=== PATIENT | male | born 1940 | race Caucasian/White ===

== ENCOUNTER 2016-09-28 14:57 | Observation (INO) ==
[2016-09-28] MEDS ORDERED: NITROGLYCERIN 2% OINT 1 INCH/GM PACK TOP STA (15:29)
[2016-09-28] MEDS ORDERED: NITROGLYCERIN 2% OINT 1 INCH/GM PACK TOP ONE (15:30)
[2016-09-28 15:34] LABS: Basophils # 0.1 10*3/uL (0.0-0.2); Basophils % 1.1 % (0.0-0.8); Eosinophils # 0.2 10*3/uL (0.0-0.87); Eosinophils % 3.9 % (0.00-10.9); Hematocrit 39.3 VOL% (42.0-52.0); Hemoglobin 14.1 GM/DL (14.0-18.0); Immature Granulocytes % 0.4 %; Immature Granulocytes Absolute 0.02 #; Lymphocytes # 1.5 10*3/uL (1.4-4.0); Mean Corpuscular HGB Conc 35.9 GM/DL (32-36); Mean Corpuscular Hemoglobin 32 PG (27-34); Mean Corpuscular Volume 88.1 FL (87-102); Mean Platelet Volume 9.3 FL (9.6-12.0); Monocytes # 0.4 10*3/uL (0.11-0.8); Monocytes % 7.4 % (1.7-12.7); Neutrophils # 3.4 10*3/uL (1.4-7.4); Neutrophils % 60.2 % (38.7-73.9); Platelet Count 128 T/CUMM (130-400); Red Blood Count 4.46 MC/CUMM (3.8-5.5); Red Cell Distribution Width 12.2 % (9.3-17.3); White Blood Count 5.7 T/CUMM (4-12)
[2016-09-28] MEDS ORDERED: ENOXAPARIN 80 MG/0.8 ML SYRINGE SUBCUT STA (15:34)
--- NOTE | 2016-09-28 15:42 | Emergency Department Note ---
Mu Blount Hilary, am scribing for, and in the presence of, Filemon Flynn MD 15: 38. Rina Blount James D, MD, personally performed the services described in this documentation, ascribed by Luz Elena Dobbins in my presence, and it is both accurate and complete 541 . Arrival - Arrival Chief Complaint: Chest Pain Stated Complaint: CHEST PAIN ED Nursing Triage Note: CHEST PAIN, OFF/ON PAST COUPLE OF WEEKS, +SOB,- DIAPHORESIS,+NAUSEA. DID SEE DR VALENCIA IN HIS OFFICE YESTERAY, PER PT HE DID NOT DO AN EKG Mode of Arrival: Ambulatory Limitations: No Limitations Source: Patient, RN Notes Reviewed - History of Present Illness HPI Narrative: Pt is a 75 y/o male presenting to the ED with c/o intermittent chest pain which onset a week ago. Pt states his pain radiates to shoulder and gets a little SOB. He denies nausea or diaphoresis. Pt states for 50 years he has smoked a pack a day but quit a year ago. He says he saw Dr. Valencia yesterday for the same c/c but they did not do an EKG. No other complaints or problems stated in the ED. Onset (ago): week(s) Consistency: intermittent Severity: mild Severity scale (1-10): 1 Quality: sharp Allergies/Adverse Reactions: Allergies Allergy/AdvReac Type Severity Reaction Status Date / Time Iodinated Contrast Media - Allergy HIVES Verified 09/28/16 15:03 Oral and Home Medications: Home Medications Medication Instructions Recorded Confirmed Type Aspirin EC Tab 325 mg PO QAM 09/28/16 09/28/16 History Atorvastatin [Lipitor] 40 mg PO BEDTIME 09/28/16 09/28/16 History Carvedilol 12.5 mg PO QPM 09/28/16 09/28/16 History Carvedilol 25 mg PO QAM 09/28/16 09/28/16 History Levothyroxine Tab [Synthroid Tab] 125 mcg PO DAILY@0700 09/28/16 09/28/16 History Loratadine Tab [Claritin Tab] 10 mg PO QAM 09/28/16 09/28/16 History Nitroglycerin Sl Tab [Nitrostat] 0.4 mg SL Q5M PRN 09/28/16 09/28/16 History Omeprazole 40 mg PO QAM 09/28/16 09/28/16 History Tamsulosin [Flomax] 0.4 mg PO QPM 09/28/16 09/28/16 History Review of System - Review of System 12 point system: reviewed and no additional remarkable complaints except as stated - Review of System Constitutional: Absent: diaphoresis, fever Respiratory: Present: respiratory distress (SOB) Cardiovascular: Present: chest pain Gastrointestinal: Present: nausea Medical,Surgical,& Family Hx - Social History Smoking Status: Smoker, status unknown Exam Physical Examination: GENERAL: This is a well-nourished, well-developed white male in no apparent distress. VITAL SIGNS: Temperature: 98.2 Pulse: 77 Respiratory: 22 Blood Pressure: 205/ 100 O2Sat: 96 HEENT: Head is normocephalic and atraumatic. Pupils are equally round and reactive to light. Extraocular movement are intact. Oropharynx is benign with moist mucous membranes. NECK: Neck is soft and supple without tenderness. There are no masses. There is no lymphadenopathy. LUNGS: Lungs are clear to auscultation bilaterally. Chest rises symmetrically. There is no chest wall tenderness. CV: Heart is regular rate and rhythm without murmurs, rubs, or gallops. ABDOMEN: Abdomen is soft, non-tender to palpation. There are no abnormal masses palpated. There is no organomegaly. Bowel sounds are present and active. SKIN: Skin is warm and dry. No rash. EXTREMITIES: Patient has full range of motion without tenderness. There is no pedal edema. NEUROLOGIC: Awake, alert, and oriented x4. Cranial nerves II through XII are grossly intact. There are no motorsensory deficits. PSYCHIATRIC: Normal affect. Normal mood. Vital Signs: Vital Signs Temperature 98.2 F 09/28/16 15:30 Pulse Rate 77 09/28/16 15:30 Respiratory Rate 18 09/28/16 15:30 Blood Pressure 205/100 09/28/16 15:30 O2 Sat by Pulse Oximetry 96 09/28/16 14:59 Results - Labs CBC & BMP: 09/28/16 15:15 09/28/16 15:15 Lab Results: I have reviewed the patients labs Labs: Laboratory Tests 09/28/16 15:15 WBC 5.7 RBC 4.46 Hgb 14.1 Hct 39.3 L Plt Count 128 L MPV 9.3 L Baso % (Auto) 1.1 H - EKG EKG results: interpreted by ERMD - Impressions EKG: Normal sinus rhythm with a rate of 71, normal P waves, normal axis. Old septal DC. - Diagnostic Findings Procedure: Chest x-ray: image reviewed by me (No infiltrates, no pleural effusions.) Disposition Clinical Impression: Chest pain, Coronary artery disease Case discussed with: patient, patient's family Disposition: Still a Patient Condition: Stable
--- NOTE | 2016-09-28 15:45 | XRay Report ---
XR chest 1V portable Indication: Chest pain. Chest one view: Comparison 04/18/2013. Heart size remains normal. Thoracic aortic tortuosity with calcified atheromatous disease is stable. Increasing bibasilar atelectasis when compared to prior examination. However, no focal pneumonia shown. Pleural spaces are clear. Impression: Worsening bibasilar atelectasis. PROCEDURE INTERPRETED AT [facility] DEPARTMENT OF RADIOLOGY Final Report Signed by: Donald Solitario M.D.
[2016-09-28] MEDS ORDERED: ALUM/MAG/SIMETH/LIDO VISC 1:1 30 ML BOTTLE PO STA (15:48)
[2016-09-28] MEDS ORDERED: ENOXAPARIN 80 MG/0.8 ML SYRINGE SUBCUT ONE (15:53)
[2016-09-28] MEDS ORDERED: ALUM/MAG/SIMETH/LIDO VISC 1:1 30 ML BOTTLE PO ONE (15:53)
[2016-09-28 15:56] LABS: Alanine Aminotransferase 21 U/L (16-61); Albumin 3.5 G/DL (3.4-5.0); Alkaline Phosphatase 102 U/L (45-117); Aspartate Amino Transferase 19 U/L (0-37); Blood Urea Nitrogen 14 MG/DL (7-18); Calcium 8.6 MG/DL (8.5-10.1); Glucose 194 MG/DL (74-106); Magnesium 2.2 MG/DL (1.8-2.4); Osmolality,Calculated 282.5 MOS/KG (273-304); Potassium 3.6 MMOL/L (3.5-5.1); Sodium 139 MMOL/L (136-145); Total Protein 6.6 G/DL (6.4-8.3); Troponin I Only < 0.015 NG/ML (0.00-0.045)
[2016-09-28 16:00] LABS: PT Patient Result 11.1 SECS; Partial Thromboplastin Time 30.4 SECS (0-40)
--- NOTE | 2016-09-28 16:42 | Internal Med History&Physical ---
Assessment and Plan (1) Chest pain Status: Acute Assessment and plan: 75-year-old male admitted to acute care * Chest pain. Atypical in nature. Not related to exertion but the pain this morning was similar to pain he had before. It was not relieved by Mylanta. His initial enzymes are negative. He had a stress test in April. Will consult cardiology to evaluate patient. He may require screening. * Hypertension. Blood pressure is stable. * New onset diabetes. His hemoglobin A1c was 6.7 in the office yesterday. * Hypothyroidism. Continue levothyroxine * Hyperlipidemia. Continue atorvastatin * Discussed with patient and his Current Visit: Yes (2) Diabetes mellitus, new onset Status: Acute Current Visit: Yes (3) Hypertension Status: Acute Current Visit: Yes (4) Hypothyroidism Status: Acute Current Visit: Yes (5) Hyperlipidemia Status: Acute Current Visit: Yes History of Present Illness Chief complaint: Chest pain History of present illness: Mr. Triplett is a 75 year old male with history of coronary artery disease, impaired glucose tolerance, hypertension, hyperlipidemia who presented to the emergency room with chest pain this morning. Patient was seen in the office yesterday and gave a history of intermittent heartburn which has been going on for few weeks and is usually easily relieved by Tums or Mylanta. This morning his blood pressure was high and then the pain was not relieved with Mylanta and he decided to come to the emergency room. It is not related with exertion. He has history of previous coronary artery disease and had a stent placed by Dr. Ruelas. He had a stress test done in April of this year and was normal. He denies any associated diaphoresis or shortness of breath. He has been a chronic smoker all his life. He is still chewing tobacco. He denies any alcohol use. He lives at home with his Home Medications Medication Instructions Recorded Confirmed Type Aspirin EC Tab 325 mg PO QAM 09/28/16 09/28/16 History Atorvastatin [Lipitor] 40 mg PO BEDTIME 09/28/16 09/28/16 History Carvedilol 12.5 mg PO QPM 09/28/16 09/28/16 History Carvedilol 25 mg PO QAM 09/28/16 09/28/16 History Levothyroxine Tab [Synthroid Tab] 125 mcg PO DAILY@0700 09/28/16 09/28/16 History Loratadine Tab [Claritin Tab] 10 mg PO QAM 09/28/16 09/28/16 History Nitroglycerin Sl Tab [Nitrostat] 0.4 mg SL Q5M PRN 09/28/16 09/28/16 History Omeprazole 40 mg PO QAM 09/28/16 09/28/16 History Tamsulosin [Flomax] 0.4 mg PO QPM 09/28/16 09/28/16 History Allergies Allergy/AdvReac Type Severity Reaction Status Date / Time Iodinated Contrast Media - Allergy HIVES Verified 09/28/16 15:03 Oral and Medical,Surgical,& Family Hx - Medical History Cardio: History of: CAD (Stent to ostium of left main coronary artery in 2005), Hypertension Endocrine: History of: Diabetes Mellitus (NIDDM) (Has had long history of impaired glucose tolerance), Dyslipidemia, Thyroid Disorder Respiratory: History of: Asthma Genitourinary: History of: Prostate Problems (BPH) Gastrointestinal: History of: GERD - Surgical History Abdominal Surgeries: Surgical HX of: Hernia Repair (Right inguinal hernia repair 2013) Orthopedic Surgeries: Surgical HX of;: Spinal Surgery (Lumbar) Additional Surgical History: Skull fracture 1969 - Family History Family History: Reports;: Family Heart Disease, Additional Family History ( Hyperlipidemia and thyroid disease) - Social History Smoking Status: Former smoker Marital Status: Lives With:: Spouse Functional capacity: independent ambulation 12 point system: reviewed and no additional remarkable complaints except as stated (As mentioned in HPI) Exam - Constitutional Vitals: Period Temp Pulse Resp BP Sys/Nair Pulse Ox Last 24 Hr 98.2 F-98.2 F 66-77 - 167-205/86-100 96-100 Exam: Examination: GENERAL: NAD. HEENT: PERRLA. EOMI. Mucous membranes are moist. NECK: Neck is supple. No JVD. No carotid bruit. No thyromegaly. CVS: Regular rate and rhythm. S1 and S2 are normal. RESPIRATORY: Lungs are clear. No rales or rhonchi. ABDOMEN: Soft and nontender. Bowel sounds are present. No hepatosplenomegaly. EXT: No edema. Peripheral pulses are present. STONE REPAIRER: Patient is awake, alert and oriented to time place and person. Cranial nerves II through XII are grossly intact. Motor strength is 5 over 5 both upper and lower extremities. SKIN: Warm and dry. MSK: No obvious deformity. Results - Labs CBC & BMP: 09/28/16 15:15 09/28/16 15:15 Lab Results: I have reviewed the past 24 hour labs
[2016-09-28] MEDS ORDERED: ONDANSETRON 4 MG/2 ML VIAL IV PRN (16:57)
[2016-09-28] MEDS ORDERED: DEXTROSE 50% 25 GM/50 ML SYRINGE IV PRN (16:57)
[2016-09-28] MEDS ORDERED: GLUCAGON 1 MG VIAL IM PRN (16:57)
[2016-09-28] MEDS ORDERED: NITROGLYCERIN SL 0.4 MG TABLET SL PRN (17:04)
[2016-09-28] MEDS: INSULIN LISPRO 100 UNIT/ML SUBCUT SCH ×2 (17:49→21:04)
[2016-09-28] MEDS: TAMSULOSIN 0.4 MG CAPSULE PO SCH (18:18)
[2016-09-28] MEDS: SODIUM CHLORIDE 0.9% 1,000 ML IV SCH (18:22)
[2016-09-28] MEDS ORDERED: CARVEDILOL 12.5 MG TABLET PO SCH (19:00)
[2016-09-28] MEDS: ATORVASTATIN 40 MG TABLET PO SCH (21:03)
[2016-09-28] MEDS: DOCUSATE SODIUM 100 MG CAPSULE PO SCH (21:03)
[2016-09-29] MEDS: SODIUM CHLORIDE 0.9% 1,000 ML IV SCH ×3 (00:47→13:35)
[2016-09-29] MEDS: ACETAMINOPHEN 325 MG TABLET PO PRN ×2 (04:08→15:52)
[2016-09-29 04:55] LABS: Basophils % 0.6 % (0.0-0.8); Eosinophils # 0.1 10*3/uL (0.0-0.87); Hematocrit 36.8 VOL% (42.0-52.0); Hemoglobin 12.7 GM/DL (14.0-18.0); Immature Granulocytes % 0.2 %; Immature Granulocytes Absolute 0.01 #; Lymphocytes # 1.5 10*3/uL (1.4-4.0); Lymphocytes % 33.1 % (21.2-54.2); Mean Corpuscular HGB Conc 34.5 GM/DL (32-36); Mean Corpuscular Hemoglobin 31 PG (27-34); Mean Corpuscular Volume 88.9 FL (87-102); Mean Platelet Volume 9.8 FL (9.6-12.0); Monocytes # 0.4 10*3/uL (0.11-0.8); Monocytes % 9.5 % (1.7-12.7); Neutrophils # 2.5 10*3/uL (1.4-7.4); Neutrophils % 53.6 % (38.7-73.9); Platelet Count 106 T/CUMM (130-400); Red Blood Count 4.14 MC/CUMM (3.8-5.5); Red Cell Distribution Width 12.4 % (9.3-17.3); White Blood Count 4.6 T/CUMM (4-12)
[2016-09-29 05:23] LABS: Calcium 8.3 MG/DL (8.5-10.1); Osmolality,Calculated 283.1 MOS/KG (273-304); Potassium 4.2 MMOL/L (3.5-5.1)
--- NOTE | 2016-09-29 07:34 | EKG Report ---
Stationary ECG Study [facility] ER Test Date: 09/28/2016 3:05:03 PM Pat Name: CHEMA CANTU Department: Room: 265 Gender: M Community Action Worker: Taylor Rosen : 1940 Requested by: Filemon Bustamante Order Number: [id number] Reading MD: XIOMARA TAN Intervals [place] Rate: 71 P: 78 WA: 167 QRS: 10 QRSD: 106 T: 71 QT: 383 QTc: 406 Interpretive Statements SINUS RHYTHM POSSIBLE SEPTAL INFARCT, PROBABLY OLD Electronically Signed On 09-29-16 12:03:08 CDT by XIOMARA TAN [email or web address]
[2016-09-29] MEDS: INSULIN LISPRO 100 UNIT/ML SUBCUT SCH ×4 (08:17→20:56)
[2016-09-29 08:40] LABS: Basophils % 0.9 % (0.0-0.8); Eosinophils # 0.1 10*3/uL (0.0-0.87); Eosinophils % 2.8 % (0.00-10.9); Hematocrit 36.9 VOL% (42.0-52.0); Hemoglobin 13.3 GM/DL (14.0-18.0); Immature Granulocytes % 0.2 %; Immature Granulocytes Absolute 0.01 #; Lymphocytes # 1.2 10*3/uL (1.4-4.0); Lymphocytes % 25.3 % (21.2-54.2); Mean Corpuscular Hemoglobin 32 PG (27-34); Mean Corpuscular Volume 88.3 FL (87-102); Mean Platelet Volume 9.3 FL (9.6-12.0); Monocytes # 0.4 10*3/uL (0.11-0.8); Neutrophils # 2.8 10*3/uL (1.4-7.4); Neutrophils % 61.8 % (38.7-73.9); Platelet Count 103 T/CUMM (130-400); Red Blood Count 4.18 MC/CUMM (3.8-5.5); Red Cell Distribution Width 12.4 % (9.3-17.3); White Blood Count 4.6 T/CUMM (4-12)
[2016-09-29] MEDS ORDERED: CARVEDILOL 25 MG TABLET PO SCH (09:00)
[2016-09-29] MEDS ORDERED: NON-FORMULARY MEDICATION (Omeprazole [Omeprazole] 40 MG) PO SCH (09:00)
[2016-09-29] MEDS ORDERED: ASPIRIN EC 325 MG TABLET PO SCH (09:00)
[2016-09-29] MEDS ORDERED: ENOXAPARIN 80 MG/0.8 ML SYRINGE SUBCUT SCH (09:00)
[2016-09-29] MEDS ORDERED: ASPIRIN 325 MG TABLET PO SCH (09:00)
[2016-09-29 09:04] LABS: Potassium 4.2 MMOL/L (3.5-5.1)
[2016-09-29 09:06] LABS: Troponin I Only < 0.015 NG/ML (0.00-0.045)
[2016-09-29 09:07] LABS: Calcium 8.2 MG/DL (8.5-10.1)
[2016-09-29 09:08] LABS: Osmolality,Calculated 282.3 MOS/KG (273-304)
--- NOTE | 2016-09-29 09:49 | Internal Med Progress Note ---
Assessment and Plan (1) Chest pain Status: Acute Assessment and plan: 75-year-old male admitted to acute care * Chest pain. Negative enzymes. Cardiology to evaluate. * GERD. On Protonix. May need an EGD if cardiac evaluation is negative * Hypertension. Blood pressure is stable. * New onset diabetes. Diabetic education to see patient * Hypothyroidism. Continue levothyroxine * Hyperlipidemia. Continue atorvastatin * Discussed with patient and his Current Visit: Yes (2) Diabetes mellitus, new onset Status: Acute Current Visit: Yes (3) Hypertension Status: Acute Current Visit: Yes (4) Hypothyroidism Status: Acute Current Visit: Yes (5) Hyperlipidemia Status: Acute Current Visit: Yes Internal Medicine - PN: Subj Interval history: Patient states that he did not had a good night. He continued to have a lot of burps and indigestion. He did have pressure on his chest. Exam (Progress Note) - Constitutional Vitals: Period Temp Pulse Resp BP Sys/Nair Pulse Ox Last 24 Hr 97.6 F-98.3 F 50-77 15-22 109-205/61-100 94-100 Exam: Examination: GENERAL: NAD. HEENT: PERRLA. EOMI. NECK: Neck is supple. CVS: Regular rate and rhythm. S1 and S2 are normal. RESPIRATORY: Lungs are clear. ABDOMEN: Soft and nontender. EXT: No edema. Peripheral pulses are present. WORKERS' COMPENSATION HEARINGS OFFICER: Nonfocal SKIN: Warm and dry. MSK: No obvious deformity. Results - Labs CBC & BMP: 09/29/16 08:29 09/29/16 08:29 Lab Results: I have reviewed the past 24 hour labs
[2016-09-29] MEDS: LEVOTHYROXINE 125 MCG TABLET PO SCH (10:17)
[2016-09-29] MEDS: PANTOPRAZOLE 40 MG TABLET PO SCH (10:17)
[2016-09-29] MEDS: DOCUSATE SODIUM 100 MG CAPSULE PO SCH ×2 (10:17→20:26)
[2016-09-29] MEDS: LORATADINE 10 MG TABLET PO SCH (10:17)
--- NOTE | 2016-09-29 12:00 | Cardiology Consult Note ---
<Josefina Rizzo - Last Filed: 09/29/16 11:41> Assessment and Plan - Time spent with patient Time spent with patient: Greater than 30 minutes (1) Atypical chest pain Status: Acute Assessment and plan: SEE PLAN OF CARE LISTED BELOW. Current Visit: Yes (2) Coronary artery disease Status: Chronic Assessment and plan: SEE PLAN OF CARE LISTED BELOW. Current Visit: Yes (3) Diabetes mellitus, new onset Status: Acute Assessment and plan: SEE PLAN OF CARE LISTED BELOW. Current Visit: Yes (4) Hyperlipidemia Status: Chronic Assessment and plan: SEE PLAN OF CARE LISTED BELOW. Current Visit: Yes (5) Hypertension Status: Chronic Assessment and plan: SEE PLAN OF CARE LISTED BELOW. Current Visit: Yes (6) Hypothyroidism Status: Chronic Assessment and plan: SEE PLAN OF CARE LISTED BELOW. Current Visit: No (7) Tobacco abuse Status: Chronic Assessment and plan: SEE PLAN OF CARE LISTED BELOW. Current Visit: Yes (8) GERD (gastroesophageal reflux disease) Status: Chronic Assessment and plan: SEE PLAN OF CARE LISTED BELOW. Current Visit: Yes History of Present Illness - Data of Consult Patient: known to practice within the last 3 years Consult date: 09/29/16 Requesting Physician: Oneal Valencia Primary care physician: Oneal Valencia - Consult Narrative Reason for consult: chest pain History of present illness: Lpc: Dr. Ruelas PCP: Dr. Valencia Mr. Triplett is a 75 year old male with known coronary artery disease, routinely followed by Dr. kyle. Patient has cardiac risk factors significant for known CAD, hypertension, dyslipidemia, new diagnosis of diabetes and tobacco abuse. Patient reports that he quit smoking tobacco 2 weeks ago. However, he instead now chews tobacco. He has no significant family history of coronary artery disease. He has a past medical history of hypothyroidism and GERD. Patient's most recent heart catheterization was performed in 2005. At that time , he had a chronically occluded LAD with collaterals present. He received PCI to ostium of the left main at that time. Since then, he has had cardiac stress testing every [address] Ruelas. His last stress test was performed in April 2016. At that time, his scan was suggestive of low to moderate risk for future cardiovascular events. Small fixed perfusion abnormality of mild intensity was noted in the apical segment. Left ventricular systolic function calculated to be 56% with normal global function. Patient was last seen in the cardiology clinic July 2016. Patient presented to [facility] for further evaluation of chest discomfort. He reports that he has been having chest pain for the past 1- 2 weeks. No exertional component noted. He describes the chest pain as a tightness located on the left side of his chest. Over the last couple of days, he has noticed left shoulder pain as well. Associated with mild shortness of breath. He denies associated diaphoresis nausea and vomiting. He describes this as a indigestion type chest pain. This usually occurs shortly after meals. He tells me that he usually takes a Tums. This along with belching makes his chest pain better after a few hours. However, yesterday patient's chest pain felt similar to how he felt prior to having PCI in 2005. This concerned him and he felt he should be further evaluated. Upon arrival to the emergency room, he was given GI cocktail which relieved his pain. His blood pressure was suboptimally controlled on arrival to the emergency department. Systolic blood pressure greater than 200. Patient has been admitted under Dr. Valencia's service. Cardiology has been consulted to further evaluate patient's chest pain. Of note, patient continues to be very active. He reports that he works in the yard on a regular basis. He can perform all of his activities without experiencing chest pain, heaviness and tightness. He can also perform these things without experiencing shortness of breath. He denies any change in his exercise tolerance. Patient was seen and examined on the telemetry unit. He is currently without complaints of chest pain, heaviness and tightness. Cardiac biomarkers have been negative 3. EKG is unchanged from previous tracings. Chest x-ray stable. Patient's chest pain is atypical in nature. Sounds like it is most likely GI. However, patient does have history of significant coronary artery disease and has not been cathed since 2005. He also has several risk factors. He just recently underwent stress testing in April 2016 which was suggestive of low to moderate risk for future cardiovascular events. Small fixed perfusion abnormality of mild intensity was noted in the apical segment. Preserved ejection fraction noted per that study. Cardiac biomarkers have been negative 3. EKG is unchanged from previous tracings. Patient is without complaints of chest pain currently. At this point, we will keep patient n.p.o., continue aspirin, beta blockade, nitrates and lipid-lowering agent. I will further discuss with Dr. Vega regarding the need for further cardiac workup, invasive versus noninvasive. If patient has negative cardiac workup, may benefit from GI evaluation. Further plan and recommendations to follow per Dr. Alonso. ASSESSMENT/PLAN: 1. ATYPICAL CHEST PAIN - Patient's chest pain is atypical in nature. Sounds like it is most likely GI. However, patient does have history of significant coronary artery disease and has not been cath since 2005. He also has several risk factors. He just recently underwent stress testing in April 2016 which was suggestive of low to moderate risk for future cardiovascular events. Small fixed perfusion abnormality of mild intensity was noted in the apical segment. Preserved ejection fraction noted per that study. Cardiac biomarkers have been negative 3. EKG is unchanged from previous tracings. Patient is without complaints of chest pain currently. At this point, we will keep patient n.p.o. , continue aspirin, beta blockade, nitrates and lipid-lowering agent. I will further discuss with Dr. Vega regarding the need for further cardiac workup, invasive versus noninvasive. If patient has negative cardiac workup, may benefit from GI evaluation. 2. HISTORY OF CAD - Patient has known history of CAD. Most recent heart catheterization performed 2005. At that time, he had a chronically occluded LAD with collaterals present. He received PCI to ostium of the left main at that time. Since then, he has had cardiac stress testing every [address] Ruelas. His last stress test was performed in April 2016. At that time, his scan was suggestive of low to moderate risk for future cardiovascular events. Small fixed perfusion abnormality of mild intensity was noted in the apical segment. Left ventricular systolic function calculated to be 56% with normal global function. Continue aspirin, lipid-lowering agent and beta- blockade. 3. HYPERTENSION - 4. DYSLIPIDEMIA - Continue lipid-lowering agent. Lipid panel in the morning. 5. NEW DIAGNOSIS OF DIABETES - Patient was just recently diagnosed with diabetes and Dr. Valencia's office. Continue sliding scale insulin. Accu-Cheks before meals and at bedtime. Patient will need diabetic education. 6. TOBACCO ABUSE - Patient has history of significant tobacco abuse. Reports that he quit smoking only 2 weeks ago. He has since then started chewing tobacco. Cessation encouraged. 7. HISTORY OF GERD - Continue PPI. 8. HYPOTHYROIDISM - Continue Synthroid. Management per attending. CC: Oneal Valencia MD - Home Medications and Allergies Home Medications: Home Medications Medication Instructions Recorded Confirmed Type Aspirin EC Tab 325 mg PO QAM 09/28/16 09/28/16 History Atorvastatin [Lipitor] 40 mg PO BEDTIME 09/28/16 09/28/16 History Carvedilol 12.5 mg PO QPM 09/28/16 09/28/16 History Carvedilol 25 mg PO QAM 09/28/16 09/28/16 History Levothyroxine Tab [Synthroid Tab] 125 mcg PO DAILY@0700 09/28/16 09/28/16 History Loratadine Tab [Claritin Tab] 10 mg PO QAM 09/28/16 09/28/16 History Nitroglycerin Sl Tab [Nitrostat] 0.4 mg SL Q5M PRN 09/28/16 09/28/16 History Omeprazole 40 mg PO QAM 09/28/16 09/28/16 History Tamsulosin [Flomax] 0.4 mg PO QPM 09/28/16 09/28/16 History Allergies/Adverse Reactions: Allergies Allergy/AdvReac Type Severity Reaction Status Date / Time Iodinated Contrast Media - Allergy HIVES Verified 09/28/16 15:03 Oral and - Constitutional Constitutional: Present: as per HPI. Absent: chills, fatigue, fever(s), frequent falls, lethargy, malaise, night sweats, weakness, weight gain, weight loss - Cardiovascular Cardiovascular: Present: as per HPI, chest pain at rest, dyspnea, radiating jaw , neck or arm pain. Absent: chest pain with activity, claudication, diaphoresis , dyspnea on exertion, edema, lightheadedness, orthopnea, palpitations, PND - Respiratory Respiratory: Present: as per HPI, dyspnea. Absent: cough, hemoptysis, dyspnea on exertion, wheezing, snoring, pain on inspiration, change in phlegm color - Gastrointestinal Gastrointestinal: Present: as per HPI, heartburn. Absent: abdominal pain, change in bowel habits, coffee ground emesis, diarrhea, hematemesis, hematochezia, loose stools, melena, nausea, vomiting - Neurological Neurological: Present: as per HPI. Absent: abnormal gait, abnormal speech, behavioral changes, dizziness, frequent falls, numbness, syncope Medical,Surgical,& Family Hx - Medical History Cardio: History of: CAD (Stent to ostium of left main coronary artery in 2005), Hypertension Endocrine: History of: Diabetes Mellitus (NIDDM) (Has had long history of impaired glucose tolerance), Dyslipidemia, Thyroid Disorder Respiratory: History of: Asthma Genitourinary: History of: Prostate Problems (BPH) Gastrointestinal: History of: GERD - Surgical History Cardiac Surgeries: Sugical HX of: Cardiac Catheterization (2005) Abdominal Surgeries: Surgical HX of: Colonoscopy, EGD, Hernia Repair (Right inguinal hernia repair 2013) Orthopedic Surgeries: Surgical HX of;: Spinal Surgery (Lumbar) - Family History Family History: Reports;: Additional Family History (Hyperlipidemia and thyroid disease) - Social History Smoking Status: Former smoker Have you smoked in the last 12 months: Yes Frequency of Alcohol Use: Rarely Type of Drug Use: None Marital Status: Lives With:: Alone Functional capacity: independent ambulation Physical Examination Vital Signs Temp Pulse Resp BP Pulse Ox 98.2 F 77 22 205/100 96 09/28/16 14:59 09/28/16 14:59 09/28/16 14:59 09/28/16 14:59 09/28/16 14:59 Exam: General: Appears well with no apparent distress. Pleasant and cooperative. Appears comfortable. HEENT: PERRL, normocephalic, atraumatic. Mucous membranes moist. No jaundice noted. Conjunctiva moist and clear, sclerae anicteric Neck: No JVD/HJR, no thyromegaly or lymphadenopathy noted. No carotid bruit appreciated Cardiac: Regular rate and rhythm. No murmur rub or gallop. Lungs: Clear to auscultation without accessory muscle use to assist the respiratory pattern. Not requiring oxygen. Abdomen: Soft, bowel sounds normoactive. Nontender and nondistended. No abdominal bruit or thrill noted. No masses noted. Extremities: No clubbing, cyanosis noted. No edema noted. Upper extremity pulses 2+. Lower extremity pulses 2+. Capillary refill less than 3 seconds. Skin: No unusual lesions or rashes. No skin breakdown appreciated. Neuro: Awake, alert and oriented 3. Moves all extremities well without hemiparesis or paralysis. No essential tremor is appreciated. Result/EKG - Labs CBC & BMP: 09/29/16 08:29 09/29/16 08:29 Lab Results: I have reviewed the past 24 hour labs Labs: Laboratory Results - last 24 hr 09/28/16 09/28/16 09/28/16 15:15 15:15 15:15 WBC 5.7 RBC 4.46 Hgb 14.1 Hct 39.3 L MCV 88.1 MCH 32 MCHC 35.9 RDW 12.2 Plt Count 128 L MPV 9.3 L Neut % (Auto) 60.2 Lymph % (Auto) 27.0 Cannon % (Auto) 7.4 Eos % (Auto) 3.9 Baso % (Auto) 1.1 H Neut # (Auto) 3.4 Lymph # (Auto) 1.5 Cannon # (Auto) 0.4 Eos # (Auto) 0.2 Baso # (Auto) 0.1 Immature Gran % 0.4 Nucleated RBC % 0.0 Immature Gran # 0.02 Nucleated RBCs # 0.00 Immature Plt Fraction 0.0 INR 1.0 PT Patient/Control Mix 11.1 Circ Anticoag PTT 30.4 Sodium 139 Potassium 3.6 Chloride 105 Carbon Dioxide 28 Anion Gap 9.6 BUN 14 Creatinine 1.20 GFR Calculation 69 BUN/Creatinine Ratio 11.00 Glucose 194 H POC Glucose Calculated Osmolality 282.5 Calcium 8.6 Magnesium 2.2 Total Bilirubin 0.70 AST 19 ALT 21 Alkaline Phosphatase 102 Total Creatine Kinase 102 CK-MB (CK-2) 1.6 Troponin I < 0.015 Total Protein 6.6 Albumin 3.5 Globulin 3.1 Albumin/Globulin Ratio 1.1 09/28/16 09/28/16 09/28/16 17:45 17:57 19:22 WBC RBC Hgb Hct MCV MCH MCHC RDW Plt Count MPV Neut % (Auto) Lymph % (Auto) Cannon % (Auto) Eos % (Auto) Baso % (Auto) Neut # (Auto) Lymph # (Auto) Cannon # (Auto) Eos # (Auto) Baso # (Auto) Immature Gran % Nucleated RBC % Immature Gran # Nucleated RBCs # Immature Plt Fraction INR PT Patient/Control Mix Circ Anticoag PTT Sodium Potassium Chloride Carbon Dioxide Anion Gap BUN Creatinine GFR Calculation BUN/Creatinine Ratio Glucose POC Glucose 148 H 122 H Calculated Osmolality Calcium Magnesium Total Bilirubin AST ALT Alkaline Phosphatase Total Creatine Kinase CK-MB (CK-2) Troponin I 0.017 Total Protein Albumin Globulin Albumin/Globulin Ratio 09/29/16 09/29/16 09/29/16 03:57 03:57 07:29 WBC 4.6 RBC 4.14 Hgb 12.7 L Hct 36.8 L MCV 88.9 MCH 31 MCHC 34.5 RDW 12.4 Plt Count 106 L MPV 9.8 Neut % (Auto) 53.6 Lymph % (Auto) 33.1 Cannon % (Auto) 9.5 Eos % (Auto) 3.0 Baso % (Auto) 0.6 Neut # (Auto) 2.5 Lymph # (Auto) 1.5 Cannon # (Auto) 0.4 Eos # (Auto) 0.1 Baso # (Auto) 0.0 Immature Gran % 0.2 Nucleated RBC % 0.0 Immature Gran # 0.01 Nucleated RBCs # 0.00 Immature Plt Fraction 0.0 INR PT Patient/Control Mix Circ Anticoag PTT Sodium 142 Potassium 4.2 Chloride 107 Carbon Dioxide 30 Anion Gap 9.2 BUN 12 Creatinine 0.80 GFR Calculation 102 BUN/Creatinine Ratio 15.00 Glucose 115 H POC Glucose 87 Calculated Osmolality 283.1 Calcium 8.3 L Magnesium Total Bilirubin AST ALT Alkaline Phosphatase Total Creatine Kinase CK-MB (CK-2) Troponin I Total Protein Albumin Globulin Albumin/Globulin Ratio 09/29/16 09/29/16 09/29/16 08:29 08:29 08:29 WBC 4.6 RBC 4.18 Hgb 13.3 L Hct 36.9 L MCV 88.3 MCH 32 MCHC 36.0 RDW 12.4 Plt Count 103 L MPV 9.3 L Neut % (Auto) 61.8 Lymph % (Auto) 25.3 Cannon % (Auto) 9.0 Eos % (Auto) 2.8 Baso % (Auto) 0.9 H Neut # (Auto) 2.8 Lymph # (Auto) 1.2 L Cannon # (Auto) 0.4 Eos # (Auto) 0.1 Baso # (Auto) 0.0 Immature Gran % 0.2 Nucleated RBC % 0.0 Immature Gran # 0.01 Nucleated RBCs # 0.00 Immature Plt Fraction 0.0 INR PT Patient/Control Mix Circ Anticoag PTT Sodium 141 Potassium 4.2 Chloride 106 Carbon Dioxide 30 Anion Gap 9.2 BUN 12 Creatinine 0.90 GFR Calculation 97 BUN/Creatinine Ratio 13.00 Glucose 130 H POC Glucose Calculated Osmolality 282.3 Calcium 8.2 L Magnesium Total Bilirubin AST ALT Alkaline Phosphatase Total Creatine Kinase 74 D CK-MB (CK-2) Troponin I < 0.015 Total Protein Albumin Globulin Albumin/Globulin Ratio <Petra Vega - Last Filed: 09/29/16 12:30> History of Present Illness - Consult Narrative History of present illness: Mr. Triplett is a 75 year old male CC: Oneal Valencia MD Physical Examination Vital Signs Temp Pulse Resp BP Pulse Ox 98.2 F 77 22 205/100 96 09/28/16 14:59 09/28/16 14:59 09/28/16 14:59 09/28/16 14:59 09/28/16 14:59 Result/EKG - Labs CBC & BMP: 09/29/16 08:29 09/29/16 08:29 Labs: Laboratory Results - last 24 hr 09/28/16 09/28/16 09/28/16 15:15 15:15 15:15 WBC 5.7 RBC 4.46 Hgb 14.1 Hct 39.3 L MCV 88.1 MCH 32 MCHC 35.9 RDW 12.2 Plt Count 128 L MPV 9.3 L Neut % (Auto) 60.2 Lymph % (Auto) 27.0 Cannon % (Auto) 7.4 Eos % (Auto) 3.9 Baso % (Auto) 1.1 H Neut # (Auto) 3.4 Lymph # (Auto) 1.5 Cannon # (Auto) 0.4 Eos # (Auto) 0.2 Baso # (Auto) 0.1 Immature Gran % 0.4 Nucleated RBC % 0.0 Immature Gran # 0.02 Nucleated RBCs # 0.00 Immature Plt Fraction 0.0 INR 1.0 PT Patient/Control Mix 11.1 Circ Anticoag PTT 30.4 Sodium 139 Potassium 3.6 Chloride 105 Carbon Dioxide 28 Anion Gap 9.6 BUN 14 Creatinine 1.20 GFR Calculation 69 BUN/Creatinine Ratio 11.00 Glucose 194 H POC Glucose Calculated Osmolality 282.5 Calcium 8.6 Magnesium 2.2 Total Bilirubin 0.70 AST 19 ALT 21 Alkaline Phosphatase 102 Total Creatine Kinase 102 CK-MB (CK-2) 1.6 Troponin I < 0.015 Total Protein 6.6 Albumin 3.5 Globulin 3.1 Albumin/Globulin Ratio 1.1 09/28/16 09/28/16 09/28/16 17:45 17:57 19:22 WBC RBC Hgb Hct MCV MCH MCHC RDW Plt Count MPV Neut % (Auto) Lymph % (Auto) Cannon % (Auto) Eos % (Auto) Baso % (Auto) Neut # (Auto) Lymph # (Auto) Cannon # (Auto) Eos # (Auto) Baso # (Auto) Immature Gran % Nucleated RBC % Immature Gran # Nucleated RBCs # Immature Plt Fraction INR PT Patient/Control Mix Circ Anticoag PTT Sodium Potassium Chloride Carbon Dioxide Anion Gap BUN Creatinine GFR Calculation BUN/Creatinine Ratio Glucose POC Glucose 148 H 122 H Calculated Osmolality Calcium Magnesium Total Bilirubin AST ALT Alkaline Phosphatase Total Creatine Kinase CK-MB (CK-2) Troponin I 0.017 Total Protein Albumin Globulin Albumin/Globulin Ratio 09/29/16 09/29/16 09/29/16 03:57 03:57 07:29 WBC 4.6 RBC 4.14 Hgb 12.7 L Hct 36.8 L MCV 88.9 MCH 31 MCHC 34.5 RDW 12.4 Plt Count 106 L MPV 9.8 Neut % (Auto) 53.6 Lymph % (Auto) 33.1 Cannon % (Auto) 9.5 Eos % (Auto) 3.0 Baso % (Auto) 0.6 Neut # (Auto) 2.5 Lymph # (Auto) 1.5 Cannon # (Auto) 0.4 Eos # (Auto) 0.1 Baso # (Auto) 0.0 Immature Gran % 0.2 Nucleated RBC % 0.0 Immature Gran # 0.01 Nucleated RBCs # 0.00 Immature Plt Fraction 0.0 INR PT Patient/Control Mix Circ Anticoag PTT Sodium 142 Potassium 4.2 Chloride 107 Carbon Dioxide 30 Anion Gap 9.2 BUN 12 Creatinine 0.80 GFR Calculation 102 BUN/Creatinine Ratio 15.00 Glucose 115 H POC Glucose 87 Calculated Osmolality 283.1 Calcium 8.3 L Magnesium Total Bilirubin AST ALT Alkaline Phosphatase Total Creatine Kinase CK-MB (CK-2) Troponin I Total Protein Albumin Globulin Albumin/Globulin Ratio 09/29/16 09/29/16 09/29/16 08:29 08:29 08:29 WBC 4.6 RBC 4.18 Hgb 13.3 L Hct 36.9 L MCV 88.3 MCH 32 MCHC 36.0 RDW 12.4 Plt Count 103 L MPV 9.3 L Neut % (Auto) 61.8 Lymph % (Auto) 25.3 Cannon % (Auto) 9.0 Eos % (Auto) 2.8 Baso % (Auto) 0.9 H Neut # (Auto) 2.8 Lymph # (Auto) 1.2 L Cannon # (Auto) 0.4 Eos # (Auto) 0.1 Baso # (Auto) 0.0 Immature Gran % 0.2 Nucleated RBC % 0.0 Immature Gran # 0.01 Nucleated RBCs # 0.00 Immature Plt Fraction 0.0 INR PT Patient/Control Mix Circ Anticoag PTT Sodium 141 Potassium 4.2 Chloride 106 Carbon Dioxide 30 Anion Gap 9.2 BUN 12 Creatinine 0.90 GFR Calculation 97 BUN/Creatinine Ratio 13.00 Glucose 130 H POC Glucose Calculated Osmolality 282.3 Calcium 8.2 L Magnesium Total Bilirubin AST ALT Alkaline Phosphatase Total Creatine Kinase 74 D CK-MB (CK-2) Troponin I < 0.015 Total Protein Albumin Globulin Albumin/Globulin Ratio 09/29/16 11:35 WBC RBC Hgb Hct MCV MCH MCHC RDW Plt Count MPV Neut % (Auto) Lymph % (Auto) Cannon % (Auto) Eos % (Auto) Baso % (Auto) Neut # (Auto) Lymph # (Auto) Cannon # (Auto) Eos # (Auto) Baso # (Auto) Immature Gran % Nucleated RBC % Immature Gran # Nucleated RBCs # Immature Plt Fraction INR PT Patient/Control Mix Circ Anticoag PTT Sodium Potassium Chloride Carbon Dioxide Anion Gap BUN Creatinine GFR Calculation BUN/Creatinine Ratio Glucose POC Glucose 111 H Calculated Osmolality Calcium Magnesium Total Bilirubin AST ALT Alkaline Phosphatase Total Creatine Kinase CK-MB (CK-2) Troponin I Total Protein Albumin Globulin Albumin/Globulin Ratio
[2016-09-29] MEDS ORDERED: methylPREDNISolone SOD SUC 125 MG/2 ML VIAL IV ONE (12:31)
[2016-09-29] MEDS ORDERED: FAMOTIDINE 20 MG/2 ML VIAL IV ONE (12:31)
[2016-09-29] MEDS ORDERED: diphenhydrAMINE 50 MG/1 ML VIAL IV ONE (12:32)
[2016-09-29] MEDS ORDERED: POTASSIUM CHLORIDE RIDER 10 MEQ in PREMIX 1 EACH IV PRN (12:32)
[2016-09-29] MEDS ORDERED: MAGNESIUM SULF RIDER 2 GM in PREMIX 1 EACH IV PRN (12:32)
[2016-09-29] MEDS ORDERED: DIAZEPAM 5 MG TABLET PO ONE (12:32)
[2016-09-29] MEDS: LISINOPRIL 5 MG TABLET PO SCH (13:33)
[2016-09-29] MEDS ORDERED: NALOXONE 0.4 MG/ML VIAL ONE (13:33)
[2016-09-29] MEDS ORDERED: HEPARIN/NACL 0.9% 2 UNITS/ML 1,000 ML IV ONE (13:33)
[2016-09-29] MEDS ORDERED: LIDOCAINE 1% 20 ML VIAL ONE (13:33)
[2016-09-29] MEDS ORDERED: SODIUM BICARBONATE 2.4 MEQ/5 ML VIAL ONE (13:34)
--- NOTE | 2016-09-29 13:38 | History and Physical Update ---
Sedation H&P Update - History and Physical H&P was reviewed, the patient examined and there: are no changes in the patients condition since last H&P was completed. - Dictation Physical: refer to H&P completed by admitting physician - Physical Exam Mental Status: alert and oriented Heart: regular rate and rhythm Lung: clear to auscultation Abdomen: within normal limits Vitals: within normal limits - Sedation Plan for Sedation: moderate Patient Consent: Procedure disscussed with patient and patinet has consented., Risks and benefits were discussed with patient,including infection,, bleeding, injury to surrounding structures, seizure, temporary nerve, Patient understands and accepts potential risks/benefits and agrees to, proceed. ASA Class: IV Airway Assessment: Class II: Soft palate, uvula, fauces visible
[2016-09-29] MEDS ORDERED: MIDAZOLAM 2 MG/2 ML VIAL ONE (13:52)
[2016-09-29] MEDS ORDERED: fentaNYL 100 MCG/2 ML VIAL ONE (13:52)
[2016-09-29] MEDS ORDERED: hydrALAZINE 20 MG/1 ML VIAL ONE (14:04)
[2016-09-29] MEDS ORDERED: METOPROLOL TARTRATE 5 MG/5 ML VIAL IV ONE (14:13)
[2016-09-29] MEDS ORDERED: ACETAMINOPHEN/CODEINE 300-30 MG TABLET PO PRN (14:32)
[2016-09-29] MEDS ORDERED: MORPHINE 2 MG/1 ML SYRINGE IV PRN (14:32)
--- NOTE | 2016-09-29 15:25 | Cardiology Operative Report ---
Date of Procedure:: 09/29/16 Pre-op diagnosis: Coronary artery disease, chest pain Post-op diagnosis: same Procedure: 1. Selective left and right coronary angiography. 2. Left heart catheterization with left ventriculogram. 3. Right iliac angiography to rule out vascular complications. 4. Application of mynx hemostasis device to the right femoral arteriotomy site. Impression: 1. Stable coronary artery disease. A. Patent ostial left main stent. B. Chronic total occlusion with 100% ostial LAD stenosis. C. Ostial circumflex with 50% stenosis. D. 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 2. Right dominant coronary arteries. 3. Ejection fraction 50 %. 4. Angiographically normal right iliac artery without evidence of vascular complications. Plan: 1. Medical management. 2. Noncardiac workup if symptoms. Equipment: Diagnostic 6 Syrian JL4, JR4, pigtail catheters. Hemodynamics: Aortic pressure 190/86 mmHg, left ventricular pressure 171/18 mmHg, LVEDP 21 mmHg Sedation: Versed 2 mg, fentanyl 50 mcg Procedure: After informed consent was obtained the patient was prepped and draped in sterile fashion. The right groin was infiltrated with 1% lidocaine and the right femoral artery was accessed via modified Seldinger technique using a micropuncture needle and a 6 Syrian femoral arterial sheath was placed. All catheter exchanges were performed over a guidewire under fluoroscopic guidance. Diagnostic 6 Syrian JL4 and JR4 catheters were advanced to the left and right coronary arteries respectively and multiple cineangiograms were performed in varying degrees of obliquity and angulation. Thereafter a pigtail catheter was advanced into the left ventricle where hemodynamics were obtained followed by left ventriculogram. At conclusion of the procedure right iliac angiography was performed to rule out vascular complications. A Mynx hemostasis device was unsuccessfully applied to the right femoral arteriotomy site. Findings: 1. The left main artery has an ostial stent that is patent with minimal late lumen loss. 2. The left anterior descending artery is 100% occluded at its ostium. There is faint left to left and right to left collateralization. 3. There is an intermediate ramus branch that is a large caliber. There is a small aneurysm in the proximal segment. There is no significant obstructive stenosis, mild luminal irregularities are present. 4. The circumflex artery is a large vessel with 50% ostial stenosis, and no other obstructive disease. 5. The right coronary artery is a dominant vessel with mild luminal irregularities but no significant stenosis. 6. Ejection fraction is 50 low % with normal anterior, inferior and apical wall motion. 7. No significant mitral regurgitation. 8. No significant aortic stenosis. 9. The right iliac artery is angiographically normal without evidence of vascular complications. Contrast use: Omnipaque 87 cc Fluoro time: 1.45 minutes Complications: none Specimens removed: none Devices implanted: Mynx Anesthesia: moderate conscious sedation Surgeon / Physician: Marguerite Roque Secretary To Board Of Commissioners: none (Lorena Toure) Estimated blood loss: minimal Specimens: none sent Condition: stable Disposition: floor
[2016-09-29] MEDS: TAMSULOSIN 0.4 MG CAPSULE PO SCH (18:26)
[2016-09-29] MEDS: ATORVASTATIN 40 MG TABLET PO SCH (20:26)
[2016-09-29] MEDS: CARVEDILOL 25 MG TABLET PO SCH (20:26)
[2016-09-30 04:41] LABS: Hematocrit 38.6 VOL% (42.0-52.0); Hemoglobin 13.9 GM/DL (14.0-18.0); Immature Granulocytes % 0.3 %; Immature Granulocytes Absolute 0.02 #; Lymphocytes # 0.7 10*3/uL (1.4-4.0); Lymphocytes % 11.3 % (21.2-54.2); Mean Corpuscular Hemoglobin 31 PG (27-34); Mean Corpuscular Volume 87.1 FL (87-102); Mean Platelet Volume 9.7 FL (9.6-12.0); Monocytes # 0.1 10*3/uL (0.11-0.8); Monocytes % 1.5 % (1.7-12.7); Neutrophils # 5.7 10*3/uL (1.4-7.4); Neutrophils % 86.9 % (38.7-73.9); Platelet Count 128 T/CUMM (130-400); Red Blood Count 4.43 MC/CUMM (3.8-5.5); Red Cell Distribution Width 12.1 % (9.3-17.3); White Blood Count 6.5 T/CUMM (4-12)
[2016-09-30 05:08] LABS: Calcium 8.5 MG/DL (8.5-10.1); Magnesium 2.3 MG/DL (1.8-2.4); Osmolality,Calculated 290.3 MOS/KG (273-304); Potassium 3.8 MMOL/L (3.5-5.1)
[2016-09-30 05:21] LABS: Risk Ratio 2.32; VLDL CHOLESTEROL 10.4 MG/DL
[2016-09-30] MEDS: LEVOTHYROXINE 125 MCG TABLET PO SCH (06:39)
--- NOTE | 2016-09-30 08:14 | EKG Report ---
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
[2016-09-30 08:43] VITALS: BP 155/87
--- NOTE | 2016-09-30 08:43 | Cardiology Progress Note ---
Assessment and Plan (1) Atypical chest pain Status: Acute Assessment and plan: SEE PLAN OF CARE LISTED BELOW. Current Visit: Yes (2) Coronary artery disease Status: Chronic Assessment and plan: SEE PLAN OF CARE LISTED BELOW. Current Visit: Yes (3) Diabetes mellitus, new onset Status: Acute Assessment and plan: SEE PLAN OF CARE LISTED BELOW. Current Visit: Yes (4) Hyperlipidemia Status: Chronic Assessment and plan: SEE PLAN OF CARE LISTED BELOW. Current Visit: Yes (5) Hypertension Status: Chronic Assessment and plan: SEE PLAN OF CARE LISTED BELOW. Current Visit: Yes (6) Hypothyroidism Status: Chronic Assessment and plan: SEE PLAN OF CARE LISTED BELOW. Current Visit: No (7) Tobacco abuse Status: Chronic Assessment and plan: SEE PLAN OF CARE LISTED BELOW. Current Visit: Yes (8) GERD (gastroesophageal reflux disease) Status: Chronic Assessment and plan: SEE PLAN OF CARE LISTED BELOW. 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 Ruelas PCP: Dr. Erik MEHTA Mr. Triplett is a 75 year old male with known coronary artery disease, routinely followed by Dr. kyle. Patient has cardiac risk factors significant for known CAD, hypertension, dyslipidemia, new diagnosis of diabetes and tobacco abuse. Patient reports that he quit smoking tobacco 2 weeks ago. However, he instead now chews tobacco. He has no significant family history of coronary artery disease. He has a past medical history of hypothyroidism and GERD. Patient's most recent heart catheterization was performed in 2005. At that time, he had a chronically occluded LAD with collaterals present. He received PCI to ostium of the left main at that time. Since then, he has had cardiac stress testing every [address] Ruelas. His last stress test was performed in April 2016. At that time, his scan was suggestive of low to moderate risk for future cardiovascular events. Small fixed perfusion abnormality of mild intensity was noted in the apical segment. Left ventricular systolic function calculated to be 56% with normal global function. Patient was last seen in the cardiology clinic July 2016. ASSESSMENT/PLAN: 1. ATYPICAL CHEST PAIN - Patient's chest pain is atypical in nature. Sounds like it is most likely GI. However, patient does have history of significant coronary artery disease and has not been cath since 2005. He also has several risk factors. He just recently underwent stress testing in April 2016 which was suggestive of low to moderate risk for future cardiovascular events. Small fixed perfusion abnormality of mild intensity was noted in the apical segment. Preserved ejection fraction noted per that study. Cardiac biomarkers have been negative 3. EKG is unchanged from previous tracings. Patient is without complaints of chest pain currently. At this point, we will keep patient n.p.o. , continue aspirin, beta blockade, nitrates and lipid-lowering agent. I will further discuss with Dr. Vega regarding the need for further cardiac workup, invasive versus noninvasive. If patient has negative cardiac workup, may benefit from GI evaluation. 2. HISTORY OF CAD - Patient has known history of CAD. Most recent heart catheterization performed 2005. At that time, he had a chronically occluded LAD with collaterals present. He received PCI to ostium of the left main at that time. Since then, he has had cardiac stress testing every [address] Ruelas. His last stress test was performed in April 2016. At that time, his scan was suggestive of low to moderate risk for future cardiovascular events. Small fixed perfusion abnormality of mild intensity was noted in the apical segment. Left ventricular systolic function calculated to be 56% with normal global function. Continue aspirin, lipid-lowering agent and beta- blockade. 3. HYPERTENSION - 4. DYSLIPIDEMIA - Continue lipid-lowering agent. Lipid panel in the morning. 5. NEW DIAGNOSIS OF DIABETES - Patient was just recently diagnosed with diabetes and Dr. Valencia's office. Continue sliding scale insulin. Accu-Cheks before meals and at bedtime. Patient will need diabetic education. 6. TOBACCO ABUSE - Patient has history of significant tobacco abuse. Reports that he quit smoking only 2 weeks ago. He has since then started chewing tobacco. Cessation encouraged. 7. HISTORY OF GERD - Continue PPI. 8. HYPOTHYROIDISM - Continue Synthroid. Management per attending. Exam (Progress Note) - Constitutional Vitals: Period Temp Pulse Resp BP Sys/Nair Pulse Ox Last 24 Hr 97.6 F-98.3 F 65-88 18-20 128-186/58-87 95-98 Result/EKG - Labs CBC & BMP: 09/30/16 03:33 09/30/16 03:33 Labs: Laboratory Results - last 24 hr 09/29/16 09/29/16 09/29/16 08:29 08:29 08:29 WBC 4.6 RBC 4.18 Hgb 13.3 L Hct 36.9 L MCV 88.3 MCH 32 MCHC 36.0 RDW 12.4 Plt Count 103 L MPV 9.3 L Neut % (Auto) 61.8 Lymph % (Auto) 25.3 [place] % (Auto) 9.0 Eos % (Auto) 2.8 Baso % (Auto) 0.9 H Neut # (Auto) 2.8 Lymph # (Auto) 1.2 L [place] # (Auto) 0.4 Eos # (Auto) 0.1 Baso # (Auto) 0.0 Immature Gran % 0.2 Nucleated RBC % 0.0 Immature Gran # 0.01 Nucleated RBCs # 0.00 Immature Plt Fraction 0.0 Sodium 141 Potassium 4.2 Chloride 106 Carbon Dioxide 30 Anion Gap 9.2 BUN 12 Creatinine 0.90 GFR Calculation 97 BUN/Creatinine Ratio 13.00 Glucose 130 H POC Glucose Calculated Osmolality 282.3 Calcium 8.2 L Magnesium Total Creatine Kinase 74 D Troponin I < 0.015 Triglycerides Cholesterol LDL Cholesterol VLDL Cholesterol HDL Cholesterol Heart Disease Risk Ratio 09/29/16 09/29/16 09/29/16 11:35 15:21 19:03 WBC RBC Hgb Hct MCV MCH MCHC RDW Plt Count MPV Neut % (Auto) Lymph % (Auto) [place] % (Auto) Eos % (Auto) Baso % (Auto) Neut # (Auto) Lymph # (Auto) [place] # (Auto) Eos # (Auto) Baso # (Auto) Immature Gran % Nucleated RBC % Immature Gran # Nucleated RBCs # Immature Plt Fraction Sodium Potassium Chloride Carbon Dioxide Anion Gap BUN Creatinine GFR Calculation BUN/Creatinine Ratio Glucose POC Glucose 111 H 115 H 301 H Calculated Osmolality Calcium Magnesium Total Creatine Kinase Troponin I Triglycerides Cholesterol LDL Cholesterol VLDL Cholesterol HDL Cholesterol Heart Disease Risk Ratio 09/30/16 09/30/16 09/30/16 03:33 03:33 03:33 WBC 6.5 D RBC 4.43 Hgb 13.9 L Hct 38.6 L MCV 87.1 MCH 31 MCHC 36.0 RDW 12.1 Plt Count 128 L D MPV 9.7 Neut % (Auto) 86.9 H Lymph % (Auto) 11.3 L [place] % (Auto) 1.5 L Eos % (Auto) 0.0 Baso % (Auto) 0.0 Neut # (Auto) 5.7 Lymph # (Auto) 0.7 L [place] # (Auto) 0.1 L Eos # (Auto) 0.0 Baso # (Auto) 0.0 Immature Gran % 0.3 Nucleated RBC % 0.0 Immature Gran # 0.02 Nucleated RBCs # 0.00 Immature Plt Fraction 0.0 Sodium 141 Potassium 3.8 Chloride 106 Carbon Dioxide 28 Anion Gap 10.8 BUN 15 Creatinine 1.10 GFR Calculation 76 BUN/Creatinine Ratio 13.00 Glucose 266 H POC Glucose Calculated Osmolality 290.3 Calcium 8.5 Magnesium 2.3 Total Creatine Kinase Troponin I Triglycerides 52 Cholesterol 109 LDL Cholesterol 53.0 VLDL Cholesterol 10.4 HDL Cholesterol 47 Heart Disease Risk Ratio 2.32 09/30/16 08:07 WBC RBC Hgb Hct MCV MCH MCHC RDW Plt Count MPV Neut % (Auto) Lymph % (Auto) [place] % (Auto) Eos % (Auto) Baso % (Auto) Neut # (Auto) Lymph # (Auto) [place] # (Auto) Eos # (Auto) Baso # (Auto) Immature Gran % Nucleated RBC % Immature Gran # Nucleated RBCs # Immature Plt Fraction Sodium Potassium Chloride Carbon Dioxide Anion Gap BUN Creatinine GFR Calculation BUN/Creatinine Ratio Glucose POC Glucose 208 H Calculated Osmolality Calcium Magnesium Total Creatine Kinase Troponin I Triglycerides Cholesterol LDL Cholesterol VLDL Cholesterol HDL Cholesterol Heart Disease Risk Ratio Specialty Discharge - Follow Up or Referrals Follow up with: Hermann Ruelas MD [Physician] - 2 Weeks (EKG )
--- NOTE | 2016-09-30 08:45 | Cardiology Progress Note ---
Assessment and Plan - Time spent with patient Time spent with patient: Less than 30 minutes (1) Coronary artery disease Status: Chronic Current Visit: Yes Qualifiers: Coronary Disease-Associated Artery/Lesion type: [place] artery [place] vs. transplanted heart: [place] heart Associated angina: without angina Qualified Code(s): I25.10 - Atherosclerotic heart disease of [place] coronary artery without angina pectoris (2) Diabetes mellitus, new onset Status: Chronic Current Visit: Yes (3) Hypertension Status: Chronic Current Visit: Yes Qualifiers: Hypertension type: essential hypertension Qualified Code(s): I10 - Essential (primary) hypertension (4) Hyperlipidemia Status: Chronic Current Visit: Yes (5) Atypical chest pain Status: Acute Current Visit: Yes (6) GERD (gastroesophageal reflux disease) Status: Chronic Current Visit: Yes Cardiology - PN: Subj Interval history: The patient has no complaints today. No more chest discomfort. We discussed the findings of his [facility] yesterday. Cath site looks good. Lipid profile is good. No nausea or vomiting. Distal pulses are good. All labs are acceptable. Exam (Progress Note) - Constitutional Vitals: Period Temp Pulse Resp BP Sys/Nair Pulse Ox Last 24 Hr 97.6 F-98.3 F 65-88 18-20 128-186/58-87 95-98 General appearance: normal weight - Head Head exam: Present: normal inspection - Eye Eye exam: Present: EOMI Pupils: Present: GRACIELA - Extremities Exam Extremities exam: Present: normal inspection, other (cath site looks good and distal pulses are good.) - Neurological Exam Neurological exam: Present: alert, oriented X3 Result/EKG - Labs CBC & BMP: 09/30/16 03:33 09/30/16 03:33 Labs: Laboratory Results - last 24 hr 09/29/16 09/29/16 09/29/16 08:29 08:29 08:29 WBC 4.6 RBC 4.18 Hgb 13.3 L Hct 36.9 L MCV 88.3 MCH 32 MCHC 36.0 RDW 12.4 Plt Count 103 L MPV 9.3 L Neut % (Auto) 61.8 Lymph % (Auto) 25.3 [place] % (Auto) 9.0 Eos % (Auto) 2.8 Baso % (Auto) 0.9 H Neut # (Auto) 2.8 Lymph # (Auto) 1.2 L [place] # (Auto) 0.4 Eos # (Auto) 0.1 Baso # (Auto) 0.0 Immature Gran % 0.2 Nucleated RBC % 0.0 Immature Gran # 0.01 Nucleated RBCs # 0.00 Immature Plt Fraction 0.0 Sodium 141 Potassium 4.2 Chloride 106 Carbon Dioxide 30 Anion Gap 9.2 BUN 12 Creatinine 0.90 GFR Calculation 97 BUN/Creatinine Ratio 13.00 Glucose 130 H POC Glucose Calculated Osmolality 282.3 Calcium 8.2 L Magnesium Total Creatine Kinase 74 D Troponin I < 0.015 Triglycerides Cholesterol LDL Cholesterol VLDL Cholesterol HDL Cholesterol Heart Disease Risk Ratio 09/29/16 09/29/16 09/29/16 11:35 15:21 19:03 WBC RBC Hgb Hct MCV MCH MCHC RDW Plt Count MPV Neut % (Auto) Lymph % (Auto) [place] % (Auto) Eos % (Auto) Baso % (Auto) Neut # (Auto) Lymph # (Auto) [place] # (Auto) Eos # (Auto) Baso # (Auto) Immature Gran % Nucleated RBC % Immature Gran # Nucleated RBCs # Immature Plt Fraction Sodium Potassium Chloride Carbon Dioxide Anion Gap BUN Creatinine GFR Calculation BUN/Creatinine Ratio Glucose POC Glucose 111 H 115 H 301 H Calculated Osmolality Calcium Magnesium Total Creatine Kinase Troponin I Triglycerides Cholesterol LDL Cholesterol VLDL Cholesterol HDL Cholesterol Heart Disease Risk Ratio 09/30/16 09/30/16 09/30/16 03:33 03:33 03:33 WBC 6.5 D RBC 4.43 Hgb 13.9 L Hct 38.6 L MCV 87.1 MCH 31 MCHC 36.0 RDW 12.1 Plt Count 128 L D MPV 9.7 Neut % (Auto) 86.9 H Lymph % (Auto) 11.3 L [place] % (Auto) 1.5 L Eos % (Auto) 0.0 Baso % (Auto) 0.0 Neut # (Auto) 5.7 Lymph # (Auto) 0.7 L [place] # (Auto) 0.1 L Eos # (Auto) 0.0 Baso # (Auto) 0.0 Immature Gran % 0.3 Nucleated RBC % 0.0 Immature Gran # 0.02 Nucleated RBCs # 0.00 Immature Plt Fraction 0.0 Sodium 141 Potassium 3.8 Chloride 106 Carbon Dioxide 28 Anion Gap 10.8 BUN 15 Creatinine 1.10 GFR Calculation 76 BUN/Creatinine Ratio 13.00 Glucose 266 H POC Glucose Calculated Osmolality 290.3 Calcium 8.5 Magnesium 2.3 Total Creatine Kinase Troponin I Triglycerides 52 Cholesterol 109 LDL Cholesterol 53.0 VLDL Cholesterol 10.4 HDL Cholesterol 47 Heart Disease Risk Ratio 2.32 09/30/16 08:07 WBC RBC Hgb Hct MCV MCH MCHC RDW Plt Count MPV Neut % (Auto) Lymph % (Auto) [place] % (Auto) Eos % (Auto) Baso % (Auto) Neut # (Auto) Lymph # (Auto) [place] # (Auto) Eos # (Auto) Baso # (Auto) Immature Gran % Nucleated RBC % Immature Gran # Nucleated RBCs # Immature Plt Fraction Sodium Potassium Chloride Carbon Dioxide Anion Gap BUN Creatinine GFR Calculation BUN/Creatinine Ratio Glucose POC Glucose 208 H Calculated Osmolality Calcium Magnesium Total Creatine Kinase Troponin I Triglycerides Cholesterol LDL Cholesterol VLDL Cholesterol HDL Cholesterol Heart Disease Risk Ratio Specialty Discharge - Follow Up or Referrals Follow up with: Hermann Ruelas MD [Physician] - 2 Weeks (EKG )
--- NOTE | 2016-09-30 08:56 | Discharge Summary ---
Hospital Course - Hospital Course Hospital Course: Patient is 75-year-old male with history of coronary artery disease, new onset diabetes, hypertension, hyperlipidemia who was admitted with atypical chest pain. Patient had negative cardiac enzymes. He was seen in consultation by cardiology. He had history of previous stent placement and multiple risk factors. Patient underwent a cardiac catheterization. It showed stable coronary artery disease with ejection fraction of about 50%. Patient was continued on his current medications. It is felt that his symptoms are related to reflux. Will increase his Protonix to 40 mg twice daily. He may require an EGD or GI workup if not better in couple of weeks. I will see him back in office in about 5-6 weeks. Lisinopril was added for better blood pressure control. Diagnosis - Discharge Diagnosis (1) Chest pain Status: Acute (2) Diabetes mellitus, new onset Status: Chronic (3) Hypertension Status: Chronic (4) Hypothyroidism Status: Chronic (5) Hyperlipidemia Status: Chronic Specialty Discharge - Follow Up or Referrals Follow up with: Hermann Ruelas MD [Physician] - 2 Weeks (EKG ) Discharge Plan - Discharge Data Disposition: Disch To Home/Self Care Condition at Discharge: Stable Discharge Diet: diabetic diet Activity: other (Per cardiology) Hygiene: no restrictions - Discharge Medications New Pantoprazole Tab [Protonix Tab] 40 mg PO BID #60 tablet Lisinopril [Prinivil] 5 mg PO DAILY #30 tablet Continue Tamsulosin [Flomax] 0.4 mg PO QPM Carvedilol 25 mg PO QAM Aspirin EC Tab 325 mg PO QAM Nitroglycerin Sl Tab [Nitrostat] 0.4 mg SL Q5M PRN PRN Reason: Chest Pain Atorvastatin [Lipitor] 40 mg PO BEDTIME Levothyroxine Tab [Synthroid Tab] 125 mcg PO DAILY@0700 Carvedilol 12.5 mg PO QPM Loratadine Tab [Claritin Tab] 10 mg PO QAM Discontinued Omeprazole 40 mg PO QAM - Follow Up or Referral Follow Up: Hermann Ruelas MD [Physician] - 2 Weeks (EKG ) - Forms/Instructions Additional Discharge Instructions: Appointment in 6 weeks same time as his Ms. wells shortly. Call in Protonix 40 mg twice daily Exam - Constitutional Vitals: Period Temp Pulse Resp BP Sys/Nair Pulse Ox Last 24 Hr 97.6 F-98.3 F 65-90 18-20 128-186/58-87 95-98 Exam: Examination: GENERAL: NAD. HEENT: PERRLA. EOMI. NECK: Neck is supple. CVS: Regular rate and rhythm. S1 and S2 are normal. RESPIRATORY: Lungs are clear. ABDOMEN: Soft and nontender. EXT: No edema. Peripheral pulses are present. 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 Discharge Results Procedures and tests throughout hospitalization: Pending Orders 10/01/16 04:00 BMP w/ Mg [Basic Metabolic Panel w/Mg] IN AM CBC [Comp Blood Count Auto Diff] IN AM Labs on day of discharge: Labs from last 24 hours 09/30/16 09/30/16 09/30/16 08:07 03:33 03:33 WBC 6.5 D RBC 4.43 Hgb 13.9 L Hct 38.6 L MCV 87.1 MCH 31 MCHC 36.0 RDW 12.1 Plt Count 128 L D MPV 9.7 Neut % (Auto) 86.9 H Lymph % (Auto) 11.3 L [place] % (Auto) 1.5 L Eos % (Auto) 0.0 Baso % (Auto) 0.0 Neut # (Auto) 5.7 Lymph # (Auto) 0.7 L [place] # (Auto) 0.1 L Eos # (Auto) 0.0 Baso # (Auto) 0.0 Immature Gran % 0.3 Nucleated RBC % 0.0 Immature Gran # 0.02 Nucleated RBCs # 0.00 Immature Plt Fraction 0.0 Sodium 141 Potassium 3.8 Chloride 106 Carbon Dioxide 28 Anion Gap 10.8 BUN 15 Creatinine 1.10 GFR Calculation 76 BUN/Creatinine Ratio 13.00 Glucose 266 H POC Glucose 208 H Calculated Osmolality 290.3 Calcium 8.5 Magnesium 2.3 Total Creatine Kinase Troponin I Triglycerides Cholesterol LDL Cholesterol VLDL Cholesterol HDL Cholesterol Heart Disease Risk Ratio 09/30/16 09/29/16 09/29/16 03:33 19:03 15:21 WBC RBC Hgb Hct MCV MCH MCHC RDW Plt Count MPV Neut % (Auto) Lymph % (Auto) [place] % (Auto) Eos % (Auto) Baso % (Auto) Neut # (Auto) Lymph # (Auto) [place] # (Auto) Eos # (Auto) Baso # (Auto) Immature Gran % Nucleated RBC % Immature Gran # Nucleated RBCs # Immature Plt Fraction Sodium Potassium Chloride Carbon Dioxide Anion Gap BUN Creatinine GFR Calculation BUN/Creatinine Ratio Glucose POC Glucose 301 H 115 H Calculated Osmolality Calcium Magnesium Total Creatine Kinase Troponin I Triglycerides 52 Cholesterol 109 LDL Cholesterol 53.0 VLDL Cholesterol 10.4 HDL Cholesterol 47 Heart Disease Risk Ratio 2.32 09/29/16 09/29/16 09/29/16 11:35 08:29 08:29 WBC RBC Hgb Hct MCV MCH MCHC RDW Plt Count MPV Neut % (Auto) Lymph % (Auto) [place] % (Auto) Eos % (Auto) Baso % (Auto) Neut # (Auto) Lymph # (Auto) [place] # (Auto) Eos # (Auto) Baso # (Auto) Immature Gran % Nucleated RBC % Immature Gran # Nucleated RBCs # Immature Plt Fraction Sodium 141 Potassium 4.2 Chloride 106 Carbon Dioxide 30 Anion Gap 9.2 BUN 12 Creatinine 0.90 GFR Calculation 97 BUN/Creatinine Ratio 13.00 Glucose 130 H POC Glucose 111 H Calculated Osmolality 282.3 Calcium 8.2 L Magnesium Total Creatine Kinase 74 D Troponin I < 0.015 Triglycerides Cholesterol LDL Cholesterol VLDL Cholesterol HDL Cholesterol Heart Disease Risk Ratio DS: Provider Date of admission: 09/28/16 16:00 Primary care physician: . No PCP Attending physician on admission: Oneal Valencia MD Consults: 09/28/16 16:57 Consult to Case Mgmt/Social Srvs [CONS] Routine Reason for Case Mgmt/Social Srvs: Discharge Planning 09/28/16 19:25 Consult to Physician [CONS] Routine Comment: Consulting Provider: Consult to Specialist Group: Cardiology When should Consulting Provider be notified: In am 09/29/16 08:07 Consult to Physician [CONS] Routine Comment: chest pain Consulting Provider: Cardiology - [facility] Consult to Specialist Group: Cardiology Person Notified: Cyn Date Notified: 09/29/16 Time Notified: 08:15 09/29/16 08:54 Consult to [facility], Educator [CONS] Routine Reason for K [employer] Police Officer: Diabetes Education Consult Comment: New Diabetic Discharging clinician: Oneal Valencia MD
[2016-09-30] MEDS: DOCUSATE SODIUM 100 MG CAPSULE PO SCH (08:58)
[2016-09-30] MEDS: CARVEDILOL 25 MG TABLET PO SCH (08:58)
[2016-09-30] MEDS: PANTOPRAZOLE 40 MG TABLET PO SCH (08:58)
[2016-09-30] MEDS: LISINOPRIL 5 MG TABLET PO SCH (08:58)
[2016-09-30] MEDS: INSULIN LISPRO 100 UNIT/ML SUBCUT SCH (08:59)
[2016-09-30] MEDS: LORATADINE 10 MG TABLET PO SCH (08:59)
[2016-09-30] MEDS ORDERED: ASPIRIN EC 81 MG TABLET PO SCH (09:00)
[2016-09-30] MEDS: SODIUM CHLORIDE 0.9% 1,000 ML IV SCH (09:03)
== END 2016-09-30 10:16 | disposition home or self-care (01) ==
LOC: N.ED 14:57 → N.EDINP 14:57 → N.TELES 17:06
PROVIDERS: ADMIT Internal Medicine; ATTEND Internal Medicine
PROC: CLCCHCL (ICD-10-PCS; 2016-09-29 15:45)

== ENCOUNTER 2020-08-17 16:27 | Inpatient (IN) ==
[2020-08-17] MEDS ORDERED: CLINDAMYCIN INJ 600 MG/50 ML PREMIX IV STA (19:21)
[2020-08-17] MEDS ORDERED: ONDANSETRON 4 MG/2 ML VIAL ONE (19:40)
[2020-08-17] MEDS ORDERED: MORPHINE 2 MG/1 ML SYRINGE ONE (19:40)
[2020-08-17 19:47] LABS: Basophils % 0.4 % (0.0-0.8); Eosinophils % 0.4 % (0.00-10.9); Hematocrit 41.2 VOL% (42.0-52.0); Immature Granulocytes % 0.3 %; Immature Granulocytes Absolute 0.02 #; Lymphocytes % 13.1 % (21.2-54.2); Mean Corpuscular Volume 89.2 FL (87-102); Mean Platelet Volume 9.1 FL (9.6-12.0); Monocytes % 12.1 % (1.7-12.7); Neutrophils % 73.7 % (38.7-73.9); Platelet Count 135 T/CUMM (130-400); Red Blood Count 4.62 MC/CUMM (3.8-5.5); Red Cell Distribution Width 12.5 % (9.3-17.3); White Blood Count 7.5 T/CUMM (4-12)
[2020-08-17] MEDS ORDERED: ONDANSETRON 4 MG/2 ML VIAL IV STA (19:47)
[2020-08-17] MEDS ORDERED: MORPHINE 2 MG/1 ML SYRINGE IV STA (19:47)
[2020-08-17 20:03] LABS: Albumin 3.7 G/DL (3.4-5.0); Bilirubin,Total 0.8 MG/DL (0.20-1.00); Calcium 9.1 MG/DL (8.5-10.1); Osmolality,Calculated 279.7 MOS/KG (273-304); Potassium 4.2 MMOL/L (3.5-5.1); Total Protein 6.9 G/DL (6.4-8.2)
[2020-08-17] MEDS ORDERED: ACYCLOVIR IV ONE (20:30)
[2020-08-17] MEDS ORDERED: SODIUM CHLORIDE 0.9% IV ONE (20:30)
[2020-08-17] MEDS ORDERED: ACETAMINOPHEN 325 MG TABLET PO PRN (20:33)
[2020-08-17] MEDS: ACYCLOVIR INJ 750 MG in SODIUM CHLORIDE 0.9% 250 ML IV SCH (22:17)
[2020-08-17] MEDS: ONDANSETRON 4 MG/2 ML VIAL IV PRN (22:17)
[2020-08-17] MEDS: ATORVASTATIN 40 MG TABLET PO SCH (22:38)
[2020-08-17] MEDS: carvediloL 25 MG TABLET PO SCH (22:38)
[2020-08-17] MEDS: TAMSULOSIN 0.4 MG CAPSULE PO SCH (22:38)
[2020-08-18] MEDS: CLINDAMYCIN INJ 600 MG/50 ML PREMIX IV SCH ×3 (03:56→20:57)
[2020-08-18] MEDS: ACYCLOVIR INJ 750 MG in SODIUM CHLORIDE 0.9% 250 ML IV SCH ×2 (05:31→16:41)
[2020-08-18] MEDS ORDERED: SODIUM CHLORIDE 0.9% IV SCH (06:00)
[2020-08-18] MEDS ORDERED: ACYCLOVIR IV SCH (06:00)
[2020-08-18 06:38] LABS: Basophils % 0.3 % (0.0-0.8); Eosinophils # 0.1 10*3/uL (0.0-0.87); Eosinophils % 1.2 % (0.00-10.9); Hematocrit 38.1 VOL% (42.0-52.0); Immature Granulocytes % 0.3 %; Immature Granulocytes Absolute 0.02 #; Lymphocytes # 1.1 10*3/uL (1.4-4.0); Lymphocytes % 17.4 % (21.2-54.2); Mean Corpuscular HGB Conc 34.1 GM/DL (32-36); Mean Corpuscular Volume 88.6 FL (87-102); Mean Platelet Volume 9.2 FL (9.6-12.0); Monocytes % 13.7 % (1.7-12.7); Neutrophils % 67.1 % (38.7-73.9); Platelet Count 117 T/CUMM (130-400); Red Cell Distribution Width 12.7 % (9.3-17.3); White Blood Count 6.1 T/CUMM (4-12)
[2020-08-18 06:53] LABS: Albumin 3.3 G/DL (3.4-5.0); Bilirubin,Total 0.8 MG/DL (0.20-1.00); Calcium 8.9 MG/DL (8.5-10.1); Total Protein 6.3 G/DL (6.4-8.2)
[2020-08-18 07:00] LABS: Hypochromasia Slight; Microcytosis Slight; Platelet Estimate Decreased
[2020-08-18] MEDS: carvediloL 25 MG TABLET PO SCH ×2 (08:08→20:54)
[2020-08-18] MEDS: ONDANSETRON 4 MG/2 ML VIAL IV PRN ×2 (08:08→16:41)
[2020-08-18] MEDS: PANTOPRAZOLE 40 MG TABLET PO SCH (08:08)
[2020-08-18] MEDS ORDERED: NITROGLYCERIN SL 0.4 MG TABLET SL PRN (09:35)
[2020-08-18] MEDS: SODIUM CHLORIDE 0.9% 1,000 ML IV SCH (10:07)
[2020-08-18] MEDS: NYSTATIN 500,000 UNIT/5 ML UDCUP SWISH/SWAL SCH ×4 (10:07→20:54)
[2020-08-18] MEDS: GABAPENTIN 100 MG CAPSULE PO SCH ×2 (12:43→20:54)
[2020-08-18] MEDS: ATORVASTATIN 40 MG TABLET PO SCH (20:54)
[2020-08-18] MEDS: TAMSULOSIN 0.4 MG CAPSULE PO SCH (20:54)
[2020-08-19] MEDS: SODIUM CHLORIDE 0.9% 1,000 ML IV SCH ×2 (00:39→21:05)
[2020-08-19] MEDS: ACYCLOVIR INJ 750 MG in SODIUM CHLORIDE 0.9% 250 ML IV SCH ×3 (00:39→17:59)
[2020-08-19 05:02] LABS: Basophils % 0.5 % (0.0-0.8); Eosinophils # 0.1 10*3/uL (0.0-0.87); Eosinophils % 1.5 % (0.00-10.9); Hematocrit 35.9 VOL% (42.0-52.0); Hemoglobin 12.1 GM/DL (14.0-18.0); Immature Granulocytes % 0.5 %; Immature Granulocytes Absolute 0.03 #; Lymphocytes # 1.3 10*3/uL (1.4-4.0); Mean Corpuscular HGB Conc 33.7 GM/DL (32-36); Mean Corpuscular Volume 90.9 FL (87-102); Mean Platelet Volume 8.9 FL (9.6-12.0); Monocytes % 14.5 % (1.7-12.7); Platelet Count 127 T/CUMM (130-400); Red Blood Count 3.95 MC/CUMM (3.8-5.5); Red Cell Distribution Width 12.3 % (9.3-17.3); White Blood Count 6.1 T/CUMM (4-12)
[2020-08-19 05:26] LABS: Calcium 8.1 MG/DL (8.5-10.1); Osmolality,Calculated 275.8 MOS/KG (273-304); Potassium 4.2 MMOL/L (3.5-5.1)
[2020-08-19 05:36] LABS: Eosinophils 2 % (0-10); Lymphocytes 16 % (20-55); Platelet Estimate Normal; Segmented Neutrophils 68 % (50-85); Total Cells Counted 100
[2020-08-19] MEDS: CLINDAMYCIN INJ 600 MG/50 ML PREMIX IV SCH ×3 (05:47→21:06)
[2020-08-19] MEDS: LEVOTHYROXINE 125 MCG TABLET PO SCH (05:48)
[2020-08-19] MEDS: PANTOPRAZOLE 40 MG TABLET PO SCH (10:08)
[2020-08-19] MEDS: hydroCHLOROthiazide 25 MG TABLET PO SCH (10:08)
[2020-08-19] MEDS: ASPIRIN EC 325 MG TABLET PO SCH (10:08)
[2020-08-19] MEDS: lisinopriL 20 MG TABLET PO SCH (10:09)
[2020-08-19] MEDS: carvediloL 25 MG TABLET PO SCH ×2 (10:09→21:06)
[2020-08-19] MEDS: LORATADINE 10 MG TABLET PO SCH (10:10)
[2020-08-19] MEDS: NYSTATIN 500,000 UNIT/5 ML UDCUP SWISH/SWAL SCH ×4 (10:10→21:05)
[2020-08-19] MEDS: GABAPENTIN 100 MG CAPSULE PO SCH ×3 (10:12→21:06)
[2020-08-19] MEDS: ATORVASTATIN 40 MG TABLET PO SCH (21:06)
[2020-08-19] MEDS: TAMSULOSIN 0.4 MG CAPSULE PO SCH (21:06)
[2020-08-20] MEDS: ACYCLOVIR INJ 750 MG in SODIUM CHLORIDE 0.9% 250 ML IV SCH ×3 (01:22→16:04)
[2020-08-20 02:30] LABS: Calcium 8.2 MG/DL (8.5-10.1); Osmolality,Calculated 272.1 MOS/KG (273-304); Potassium 3.6 MMOL/L (3.5-5.1)
[2020-08-20] MEDS: CLINDAMYCIN INJ 600 MG/50 ML PREMIX IV SCH ×3 (05:50→21:20)
[2020-08-20] MEDS: LEVOTHYROXINE 125 MCG TABLET PO SCH (05:51)
[2020-08-20] MEDS: hydroCHLOROthiazide 25 MG TABLET PO SCH (09:03)
[2020-08-20] MEDS: ASPIRIN EC 325 MG TABLET PO SCH (09:03)
[2020-08-20] MEDS: lisinopriL 20 MG TABLET PO SCH (09:04)
[2020-08-20] MEDS: GABAPENTIN 100 MG CAPSULE PO SCH ×3 (09:04→21:21)
[2020-08-20] MEDS: PANTOPRAZOLE 40 MG TABLET PO SCH (09:04)
[2020-08-20] MEDS: carvediloL 25 MG TABLET PO SCH ×2 (09:04→21:21)
[2020-08-20] MEDS: LORATADINE 10 MG TABLET PO SCH (09:04)
[2020-08-20] MEDS: NYSTATIN 500,000 UNIT/5 ML UDCUP SWISH/SWAL SCH ×4 (09:05→21:30)
[2020-08-20] MEDS: methylPREDNISolone SOD SUC 40 MG/1 ML VIAL IV SCH ×3 (09:05→23:59)
[2020-08-20] MEDS: CIPROFLOXACIN/DEXAMETHASONE OTIC SUSP 7.5 ML BOTTLE LEFT EAR SCH ×2 (13:24→21:21)
[2020-08-20] MEDS: SODIUM CHLORIDE 0.9% 1,000 ML IV SCH ×2 (13:58→22:09)
[2020-08-20] MEDS: ATORVASTATIN 40 MG TABLET PO SCH (21:21)
[2020-08-20] MEDS: TAMSULOSIN 0.4 MG CAPSULE PO SCH (21:21)
[2020-08-21] MEDS: SODIUM CHLORIDE 0.9% 1,000 ML IV SCH ×3 (03:45→17:01)
[2020-08-21 05:11] LABS: Basophils % 0.2 % (0.0-0.8); Hematocrit 29.2 VOL% (42.0-52.0); Hemoglobin 10.4 GM/DL (14.0-18.0); Immature Granulocytes % 0.3 %; Immature Granulocytes Absolute 0.02 #; Lymphocytes # 0.8 10*3/uL (1.4-4.0); Lymphocytes % 12.7 % (21.2-54.2); Mean Corpuscular HGB Conc 35.6 GM/DL (32-36); Mean Corpuscular Volume 86.9 FL (87-102); Mean Platelet Volume 9.7 FL (9.6-12.0); Monocytes % 2.3 % (1.7-12.7); Neutrophils % 84.5 % (38.7-73.9); Platelet Count 111 T/CUMM (130-400); Red Blood Count 3.36 MC/CUMM (3.8-5.5); Red Cell Distribution Width 11.9 % (9.3-17.3); White Blood Count 6.1 T/CUMM (4-12)
[2020-08-21 05:37] LABS: Calcium 6.7 MG/DL (8.5-10.1); Osmolality,Calculated 286.4 MOS/KG (273-304); Potassium 3.3 MMOL/L (3.5-5.1)
[2020-08-21] MEDS: CLINDAMYCIN INJ 600 MG/50 ML PREMIX IV SCH ×3 (05:44→20:35)
[2020-08-21] MEDS: LEVOTHYROXINE 125 MCG TABLET PO SCH (05:44)
[2020-08-21] MEDS: NYSTATIN 500,000 UNIT/5 ML UDCUP SWISH/SWAL SCH ×4 (08:11→20:35)
[2020-08-21] MEDS: ASPIRIN EC 325 MG TABLET PO SCH (08:12)
[2020-08-21] MEDS: LORATADINE 10 MG TABLET PO SCH (08:12)
[2020-08-21] MEDS: carvediloL 25 MG TABLET PO SCH ×2 (08:12→20:35)
[2020-08-21] MEDS: hydroCHLOROthiazide 25 MG TABLET PO SCH (08:12)
[2020-08-21] MEDS: PANTOPRAZOLE 40 MG TABLET PO SCH (08:12)
[2020-08-21] MEDS: lisinopriL 20 MG TABLET PO SCH (08:12)
[2020-08-21] MEDS: ACYCLOVIR INJ 750 MG in SODIUM CHLORIDE 0.9% 250 ML IV SCH ×3 (08:13→16:29)
[2020-08-21] MEDS: CIPROFLOXACIN/DEXAMETHASONE OTIC SUSP 7.5 ML BOTTLE LEFT EAR SCH ×2 (08:13→20:37)
[2020-08-21] MEDS: GABAPENTIN 100 MG CAPSULE PO SCH ×3 (08:13→20:35)
[2020-08-21] MEDS: POTASSIUM CHLORIDE 10 MEQ TABLET PO SCH (08:55)
[2020-08-21] MEDS ORDERED: DOCUSATE SODIUM 100 MG CAPSULE PO PRN (09:01)
[2020-08-21] MEDS: TAMSULOSIN 0.4 MG CAPSULE PO SCH (20:35)
[2020-08-21] MEDS: ATORVASTATIN 40 MG TABLET PO SCH (20:35)
[2020-08-22] MEDS: ACYCLOVIR INJ 750 MG in SODIUM CHLORIDE 0.9% 250 ML IV SCH ×3 (00:11→16:26)
[2020-08-22] MEDS: CLINDAMYCIN INJ 600 MG/50 ML PREMIX IV SCH ×3 (05:43→21:26)
[2020-08-22] MEDS: LEVOTHYROXINE 125 MCG TABLET PO SCH (05:44)
[2020-08-22 06:07] LABS: Basophils % 0.3 % (0.0-0.8); Eosinophils # 0.1 10*3/uL (0.0-0.87); Eosinophils % 0.7 % (0.00-10.9); Hematocrit 32.6 VOL% (42.0-52.0); Hemoglobin 11.6 GM/DL (14.0-18.0); Immature Granulocytes % 0.5 %; Immature Granulocytes Absolute 0.04 #; Lymphocytes # 1.5 10*3/uL (1.4-4.0); Lymphocytes % 20.1 % (21.2-54.2); Mean Corpuscular HGB Conc 35.6 GM/DL (32-36); Mean Corpuscular Volume 86.7 FL (87-102); Mean Platelet Volume 9.7 FL (9.6-12.0); Monocytes % 7.9 % (1.7-12.7); Neutrophils % 70.5 % (38.7-73.9); Platelet Count 127 T/CUMM (130-400); Red Blood Count 3.76 MC/CUMM (3.8-5.5); Red Cell Distribution Width 12.4 % (9.3-17.3); White Blood Count 7.6 T/CUMM (4-12)
[2020-08-22] MEDS: SODIUM CHLORIDE 0.9% 1,000 ML IV SCH ×2 (06:20→21:25)
[2020-08-22 08:48] LABS: Calcium 7.8 MG/DL (8.5-10.1); Osmolality,Calculated 279.5 MOS/KG (273-304); Potassium 3.9 MMOL/L (3.5-5.1)
[2020-08-22] MEDS: hydroCHLOROthiazide 25 MG TABLET PO SCH (09:35)
[2020-08-22] MEDS: GABAPENTIN 100 MG CAPSULE PO SCH ×3 (09:35→21:28)
[2020-08-22] MEDS: ASPIRIN EC 325 MG TABLET PO SCH (09:35)
[2020-08-22] MEDS: carvediloL 25 MG TABLET PO SCH ×2 (09:36→21:28)
[2020-08-22] MEDS: INSULIN LISPRO 100 UNIT/ML SUBCUT SCH ×3 (09:36→16:29)
[2020-08-22] MEDS: lisinopriL 20 MG TABLET PO SCH (09:36)
[2020-08-22] MEDS: PANTOPRAZOLE 40 MG TABLET PO SCH (09:36)
[2020-08-22] MEDS: LORATADINE 10 MG TABLET PO SCH (09:36)
[2020-08-22] MEDS: POTASSIUM CHLORIDE 10 MEQ TABLET PO SCH (09:36)
[2020-08-22] MEDS: CIPROFLOXACIN/DEXAMETHASONE OTIC SUSP 7.5 ML BOTTLE LEFT EAR SCH ×2 (09:37→21:28)
[2020-08-22] MEDS: NYSTATIN 500,000 UNIT/5 ML UDCUP SWISH/SWAL SCH ×4 (09:37→21:27)
[2020-08-22] MEDS: ATORVASTATIN 40 MG TABLET PO SCH (21:27)
[2020-08-22] MEDS: TAMSULOSIN 0.4 MG CAPSULE PO SCH (21:27)
[2020-08-23] MEDS: ACYCLOVIR INJ 750 MG in SODIUM CHLORIDE 0.9% 250 ML IV SCH ×3 (00:29→16:23)
[2020-08-23] MEDS: CLINDAMYCIN INJ 600 MG/50 ML PREMIX IV SCH ×3 (05:40→22:02)
[2020-08-23] MEDS: LEVOTHYROXINE 125 MCG TABLET PO SCH (05:41)
[2020-08-23] MEDS: INSULIN LISPRO 100 UNIT/ML SUBCUT SCH ×3 (07:57→16:20)
[2020-08-23] MEDS: CIPROFLOXACIN/DEXAMETHASONE OTIC SUSP 7.5 ML BOTTLE LEFT EAR SCH ×2 (09:23→22:03)
[2020-08-23] MEDS: POTASSIUM CHLORIDE 10 MEQ TABLET PO SCH (09:23)
[2020-08-23] MEDS: hydroCHLOROthiazide 25 MG TABLET PO SCH (09:24)
[2020-08-23] MEDS: ASPIRIN EC 325 MG TABLET PO SCH (09:24)
[2020-08-23] MEDS: NYSTATIN 500,000 UNIT/5 ML UDCUP SWISH/SWAL SCH ×4 (09:24→22:02)
[2020-08-23] MEDS: lisinopriL 20 MG TABLET PO SCH (09:24)
[2020-08-23] MEDS: PANTOPRAZOLE 40 MG TABLET PO SCH (09:25)
[2020-08-23] MEDS: GABAPENTIN 100 MG CAPSULE PO SCH ×3 (09:25→22:02)
[2020-08-23] MEDS: carvediloL 25 MG TABLET PO SCH ×2 (09:25→22:02)
[2020-08-23] MEDS: LORATADINE 10 MG TABLET PO SCH (09:25)
[2020-08-23] MEDS: SODIUM CHLORIDE 0.9% 1,000 ML IV SCH (14:57)
[2020-08-23] MEDS: TAMSULOSIN 0.4 MG CAPSULE PO SCH (22:02)
[2020-08-23] MEDS: ATORVASTATIN 40 MG TABLET PO SCH (22:02)
[2020-08-24] MEDS: ACYCLOVIR INJ 750 MG in SODIUM CHLORIDE 0.9% 250 ML IV SCH ×3 (02:10→17:50)
[2020-08-24] MEDS: LEVOTHYROXINE 125 MCG TABLET PO SCH (06:07)
[2020-08-24] MEDS: CLINDAMYCIN INJ 600 MG/50 ML PREMIX IV SCH ×3 (06:08→20:50)
[2020-08-24] MEDS: INSULIN LISPRO 100 UNIT/ML SUBCUT SCH ×3 (07:57→16:31)
[2020-08-24] MEDS: NYSTATIN 500,000 UNIT/5 ML UDCUP SWISH/SWAL SCH ×4 (10:07→20:51)
[2020-08-24] MEDS: POTASSIUM CHLORIDE 10 MEQ TABLET PO SCH (10:08)
[2020-08-24] MEDS: ASPIRIN EC 325 MG TABLET PO SCH (10:08)
[2020-08-24] MEDS: lisinopriL 20 MG TABLET PO SCH (10:08)
[2020-08-24] MEDS: CIPROFLOXACIN/DEXAMETHASONE OTIC SUSP 7.5 ML BOTTLE LEFT EAR SCH ×2 (10:08→21:30)
[2020-08-24] MEDS: LORATADINE 10 MG TABLET PO SCH (10:08)
[2020-08-24] MEDS: GABAPENTIN 100 MG CAPSULE PO SCH ×3 (10:08→20:51)
[2020-08-24] MEDS: hydroCHLOROthiazide 25 MG TABLET PO SCH (10:09)
[2020-08-24] MEDS: PANTOPRAZOLE 40 MG TABLET PO SCH (10:09)
[2020-08-24] MEDS: carvediloL 25 MG TABLET PO SCH ×2 (10:09→20:51)
[2020-08-24] MEDS: traMADol 50 MG TABLET PO PRN ×2 (10:11→20:51)
[2020-08-24] MEDS: ATORVASTATIN 40 MG TABLET PO SCH (20:51)
[2020-08-24] MEDS: TAMSULOSIN 0.4 MG CAPSULE PO SCH (20:51)
[2020-08-25] MEDS: ACYCLOVIR INJ 750 MG in SODIUM CHLORIDE 0.9% 250 ML IV SCH ×2 (01:51→08:59)
[2020-08-25] MEDS: CLINDAMYCIN INJ 600 MG/50 ML PREMIX IV SCH (04:36)
[2020-08-25] MEDS: LEVOTHYROXINE 125 MCG TABLET PO SCH ×2 (04:38→05:52)
[2020-08-25 05:22] LABS: Basophils % 0.7 % (0.0-0.8); Eosinophils # 0.2 10*3/uL (0.0-0.87); Eosinophils % 3.2 % (0.00-10.9); Hematocrit 35.7 VOL% (42.0-52.0); Hemoglobin 12.5 GM/DL (14.0-18.0); Immature Granulocytes % 1.1 %; Immature Granulocytes Absolute 0.06 #; Lymphocytes # 1.4 10*3/uL (1.4-4.0); Lymphocytes % 25.4 % (21.2-54.2); Mean Corpuscular Volume 89.3 FL (87-102); Neutrophils % 60.6 % (38.7-73.9); Platelet Count 158 T/CUMM (130-400); Red Cell Distribution Width 12.5 % (9.3-17.3); White Blood Count 5.7 T/CUMM (4-12)
[2020-08-25 05:48] LABS: Hypochromasia Slight; Microcytosis Slight
[2020-08-25 05:49] LABS: Platelet Estimate Adequate
[2020-08-25 07:23] VITALS: BP 156/74
[2020-08-25 08:24] LABS: Calcium 8.4 MG/DL (8.5-10.1); Osmolality,Calculated 272.1 MOS/KG (273-304); Potassium 4.5 MMOL/L (3.5-5.1)
[2020-08-25] MEDS: INSULIN LISPRO 100 UNIT/ML SUBCUT SCH (08:47)
[2020-08-25] MEDS: ASPIRIN EC 325 MG TABLET PO SCH (08:49)
[2020-08-25] MEDS: PANTOPRAZOLE 40 MG TABLET PO SCH (08:49)
[2020-08-25] MEDS: carvediloL 25 MG TABLET PO SCH (08:49)
[2020-08-25] MEDS: lisinopriL 20 MG TABLET PO SCH (08:49)
[2020-08-25] MEDS: CIPROFLOXACIN/DEXAMETHASONE OTIC SUSP 7.5 ML BOTTLE LEFT EAR SCH (08:49)
[2020-08-25] MEDS: GABAPENTIN 100 MG CAPSULE PO SCH (08:49)
[2020-08-25] MEDS: POTASSIUM CHLORIDE 10 MEQ TABLET PO SCH (08:50)
[2020-08-25] MEDS: hydroCHLOROthiazide 25 MG TABLET PO SCH (08:50)
[2020-08-25] MEDS: LORATADINE 10 MG TABLET PO SCH (08:50)
[2020-08-25] MEDS: NYSTATIN 500,000 UNIT/5 ML UDCUP SWISH/SWAL SCH (09:00)
== END 2020-08-25 11:14 | disposition home or self-care (01) | DRG 74 ==
LOC: N.ED 16:27 → N.EDINP 16:27 → N.5E 20:57
PROVIDERS: ADMIT Internal Medicine; ATTEND Internal Medicine